=== PATIENT | female | born 1960 | race African-American/Black ===

== ENCOUNTER 2017-12-21 07:14 | Emergency (ER) | payer OTHER ==
[~2017-12-21] VITALS: Ht 160 cm; Wt 81.6 kg
[2017-12-21 07:21] VITALS: BP 132/87; Ht 160 cm; Wt 81.6 kg
== END 2017-12-21 08:10 | disposition home or self-care (01) ==
LOC: ED 07:14
DX: S93.502A Unspecified sprain of left great toe, initial encounter (principal); I10 Essential (primary) hypertension; W01.0XXA Fall on same level from slipping, tripping and stumbling without subsequent striking against object, initial encounter; Y93.89 Activity, other specified; Y99.8 Other external cause status; Y92.89 Other specified places as the place of occurrence of the external cause
CPT/HCPCS: Q0092

== ENCOUNTER 2019-06-21 06:58 | Emergency (ER) | payer OTHER ==
[~2019-06-21] VITALS: Ht 160 cm; Wt 81.6 kg
[2019-06-21 07:08] VITALS: BP 123/63; Ht 160 cm; Wt 81.6 kg
== END 2019-06-21 07:43 | disposition home or self-care (01) ==
LOC: ED 06:58
DX: N39.0 Urinary tract infection, site not specified (principal); I10 Essential (primary) hypertension